=== PATIENT | female | born 1940 | race African-American/Black ===

== ENCOUNTER 2017-01-26 14:54 | Inpatient (IN) | payer OTHER ==
[~2017-01-26] VITALS: Ht 162.6 cm; Wt 99.7 kg
[2017-01-26 15:24] LABS: HEMATOCRIT 37.9 % (36.0-46.0); MCH 28.2 PG (29.0-34.0); MCHC 30.6 G/DL (30.0-36.0); MCV 92.2 FL (83-99); MEAN PLAT.VOLUME 9.8 uM^3 (9.5-12.4); PLATELET COUNT 287 K/uL (156-360); RBC DIS.WIDTH-CV 13.6 % (11.8-14.6); RBC DIS.WIDTH-SD 46.2 % (39-53); RED BLOOD COUNT 4.11 M/uL (3.80-5.20); WHITE BLOOD COUNT 7.3 K/uL (4.1-10.2)
[2017-01-26 15:34] LABS: CHLORIDE 107 mEq/L (99-109); POTASSIUM 3.8 mEq/L (3.7-5.4); SODIUM 141 mEq/L (136-147)
[2017-01-26 15:35] LABS: GLUCOSE 105 mg/dL (70-99)
[2017-01-26 15:39] LABS: ANION GAP 10 MEQ/L (2-14); GFR ESTIMATE (CALCULATED) > 59 mL/min/
[2017-01-26 15:40] LABS: UREA NITROGEN (BUN) 8 mg/dL (9-23)
[2017-01-26 16:13] LABS: TROP-I INTERPRETATION NEGATIVE; TROPONIN-I < 0.01 ng/mL (0.0-0.30)
[2017-01-26] MEDS ORDERED: BENAZEPRIL HCL40 MG PO (16:27)
[2017-01-26] MEDS ORDERED: AMLODIPINE BESYL5 MG PO (16:27)
[2017-01-26] MEDS ORDERED: SIMVASTATIN40 MG PO (16:27)
[2017-01-26] MEDS ORDERED: METFORMIN HCL500 M1 PO ×2 (16:27→16:28)
[2017-01-26] MEDS ORDERED: ATENOLOL25 MG PO (16:27)
[2017-01-26] MEDS ORDERED: SYNTHROID75 MCG PO (16:27)
[2017-01-26] MEDS ORDERED: LO-DOSE ASPIRIN81 M2 PO (16:28)
[2017-01-26 17:35] LABS: HDL CHOLESTEROL 56 MG/DL (Desirable>=50); LDL CHOLESTEROL 90 mg/dL (Desirable<100); NON-HDL CHOLESTEROL 109 mg/dL (Desirable<160); TOTAL CHOLESTEROL 165 mg/dL (Desirable<200); TRIGLYCERIDES 94 MG/DL (Normal: <150)
[2017-01-26 17:40] LABS: Estimated Average Glucose 134 mg/dL (70-123); HEMOGLOBIN A1c (GLYCOHEMOGLOB) 6.3 % HGB (Below 5.7)
[2017-01-26 20:24] VITALS: BP 169/82
[2017-01-27 01:11] VITALS: BP 138/69
[2017-01-27 04:21] VITALS: BP 166/72
[2017-01-27 08:11] VITALS: BP 158/88
[2017-01-27 11:36] VITALS: BP 146/78
[2017-01-27 12:14] LABS: POINT-OF-CARE METER ID UU14188625
[2017-01-27 20:00] VITALS: BP 178/87
[2017-01-27 21:00] VITALS: BP 170/82
[2017-01-27 21:14] LABS: POINT-OF-CARE METER ID UU14174225
[2017-01-28] VITALS: BP 193/75
[2017-01-28 04:00] VITALS: BP 170/80
[2017-01-28 08:03] VITALS: BP 152/67
[2017-01-28 08:40] LABS: POINT-OF-CARE METER ID UU14174225
[2017-01-28] MEDS ORDERED: ZESTRIL40 MG PO (16:18)
[2017-01-28] MEDS ORDERED: PRAVACHOL40 MG PO (16:20)
[2017-01-28] MEDS ORDERED: HEPARIN SO5000 UNIT3 SC (16:20)
== END 2017-01-28 13:32 | DRG 65 ==
LOC: EME 14:54 → EDOF 16:25 → 5SOUTH 16:25
PROVIDERS: Hospitalist; Internal Medicine
DX: I63.9 Cerebral infarction, unspecified (principal); G81.94 Hemiplegia, unspecified affecting left nondominant side; R29.810 Facial weakness; I10 Essential (primary) hypertension; E11.9 Type 2 diabetes mellitus without complications; E03.9 Hypothyroidism, unspecified; E78.5 Hyperlipidemia, unspecified; Z79.84 Long term (current) use of oral hypoglycemic drugs; Z79.82 Long term (current) use of aspirin
CPT/HCPCS: 70450; 70551; 71020; 80048; 80061; 82948; 83036; 84484; 85027; 92523 GN; 92610 GN; 93005; 93306; 93880; 97530 GP; 99281; 99285; J1644; J7030

== ENCOUNTER 2017-01-28 08:49 | Inpatient (IN) | payer OTHER ==
[~2017-01-28] VITALS: Ht 162.6 cm; Wt 82.3 kg
[~2017-01-28 08:49] MED LIST: AMLODIPINE BESYL5 MG PO; ATENOLOL25 MG PO; BENAZEPRIL HCL40 MG PO; LO-DOSE ASPIRIN81 M2 PO; METFORMIN HCL500 M1 PO; SIMVASTATIN40 MG PO; SYNTHROID75 MCG PO
[2017-01-28 13:56] VITALS: BP 170/87
[2017-01-28] MEDS ORDERED: ZESTRIL40 MG PO (16:18)
[2017-01-28] MEDS ORDERED: PRAVACHOL40 MG PO (16:20)
[2017-01-28] MEDS ORDERED: HEPARIN SO5000 UNIT3 SC (16:20)
[2017-01-28 17:03] LABS: POINT-OF-CARE METER ID UU14174215
[2017-01-28 20:43] VITALS: BP 120/66
[2017-01-28 21:31] LABS: POINT-OF-CARE METER ID UU13113720
[2017-01-28 23:31] VITALS: BP 161/72
[2017-01-29 05:17] LABS: HEMATOCRIT 34.4 % (36.0-46.0); MCH 28.3 PG (29.0-34.0); MCHC 30.8 G/DL (30.0-36.0); PLATELET COUNT 239 K/uL (156-360); RBC DIS.WIDTH-CV 13.7 % (11.8-14.6); RBC DIS.WIDTH-SD 46.3 % (39-53); RED BLOOD COUNT 3.74 M/uL (3.80-5.20); WHITE BLOOD COUNT 6.1 K/uL (4.1-10.2)
[2017-01-29 05:35] LABS: ALKALINE PHOSPHATASE 38 IU/L (3-129); ANION GAP 9 MEQ/L (2-14); CHLORIDE 105 MEQ/L (99-109); GFR ESTIMATE (CALCULATED) > 59 mL/min/; GLUCOSE 124 mg/dL (70-99); POTASSIUM 3.5 MEQ/L (3.7-5.4); SAMPLE HEMOLYSIS CHECK 0; SAMPLE ICTERIC CHECK 0; SAMPLE LIPEMIA CHECK 0; SODIUM 140 MEQ/L (136-147); TOTAL BILIRUBIN 0.5 MG/DL (0.0-1.0); UREA NITROGEN (BUN) 10 mg/dL (9-23)
[2017-01-29 05:37] VITALS: BP 143/70
[2017-01-29 06:59] LABS: POINT-OF-CARE METER ID UU14174215
[2017-01-29 11:24] LABS: POINT-OF-CARE METER ID UU14174215; POINT-OF-CARE USER ID ENVGAF
[2017-01-29 15:10] VITALS: BP 151/70
[2017-01-29 16:13] LABS: POINT-OF-CARE METER ID UU14174215
[2017-01-29 21:11] LABS: POINT-OF-CARE METER ID UU14174215
[2017-01-30 05:37] VITALS: BP 143/75
[2017-01-30 06:59] LABS: POINT-OF-CARE METER ID UU14174215; POINT-OF-CARE USER ID ENVGAF
[2017-01-30 11:25] LABS: POINT-OF-CARE METER ID UU14174215
[2017-01-30 15:09] VITALS: BP 138/68
[2017-01-30 16:19] LABS: POINT-OF-CARE METER ID UU14174215
[2017-01-30 21:11] LABS: POINT-OF-CARE METER ID UU14174215
[2017-01-31 05:08] LABS: CHLORIDE 108 mEq/L (99-109); POTASSIUM 3.5 mEq/L (3.7-5.4); SODIUM 140 mEq/L (136-147)
[2017-01-31 05:09] LABS: GLUCOSE 116 mg/dL (70-99)
[2017-01-31 05:11] LABS: ANION GAP 8 MEQ/L (2-14)
[2017-01-31 05:13] LABS: GFR ESTIMATE (CALCULATED) > 59 mL/min/
[2017-01-31 05:14] LABS: UREA NITROGEN (BUN) 12 mg/dL (9-23)
[2017-01-31 05:34] VITALS: BP 160/70
[2017-01-31 07:23] LABS: POINT-OF-CARE METER ID UU13113720; POINT-OF-CARE USER ID AHSSSJB31
[2017-01-31 11:39] LABS: POINT-OF-CARE METER ID UU13113720; POINT-OF-CARE USER ID AHSSSJB31
[2017-01-31 14:58] VITALS: BP 147/76
[2017-01-31 15:00] VITALS: BP 151/69
[2017-01-31 15:06] LABS: POINT-OF-CARE METER ID UU13113720
[2017-01-31 21:10] LABS: POINT-OF-CARE METER ID UU13113720
[2017-02-01 05:30] VITALS: BP 153/67
[2017-02-01 11:33] LABS: POINT-OF-CARE METER ID UU14174215
[2017-02-01 13:52] LABS: POINT-OF-CARE METER ID UU13113720
[2017-02-01 15:24] VITALS: BP 160/74
[2017-02-01 16:28] LABS: POINT-OF-CARE METER ID UU14174215
[2017-02-01 21:34] LABS: POINT-OF-CARE METER ID UU14174215
[2017-02-02 05:51] VITALS: BP 135/58
[2017-02-02 07:20] LABS: POINT-OF-CARE METER ID UU13113720
[2017-02-02 11:07] LABS: POINT-OF-CARE METER ID UU14174215
[2017-02-02 16:01] VITALS: BP 136/64
[2017-02-02 16:30] LABS: POINT-OF-CARE METER ID UU14174215
[2017-02-02 21:31] LABS: POINT-OF-CARE METER ID UU14174215
[2017-02-03 06:05] VITALS: BP 159/71
[2017-02-03 06:46] LABS: POINT-OF-CARE METER ID UU13113720
[2017-02-03 11:26] LABS: POINT-OF-CARE METER ID UU13113712
[2017-02-03 15:54] VITALS: BP 150/68
[2017-02-03 16:45] LABS: POINT-OF-CARE METER ID UU13113720
[2017-02-03 21:26] LABS: POINT-OF-CARE METER ID UU14174215
[2017-02-04 05:20] VITALS: BP 155/70
[2017-02-04 06:54] LABS: POINT-OF-CARE METER ID UU13113720; POINT-OF-CARE USER ID ENVGAF
[2017-02-04 11:51] LABS: POINT-OF-CARE METER ID UU14174215; POINT-OF-CARE USER ID ENVGAF
[2017-02-04 14:57] VITALS: BP 154/67
[2017-02-04 16:39] LABS: POINT-OF-CARE METER ID UU13113720
[2017-02-04 22:11] LABS: POINT-OF-CARE METER ID UU13113720
[2017-02-05 05:25] VITALS: BP 138/67
[2017-02-05 08:02] LABS: POINT-OF-CARE METER ID UU13113720
[2017-02-05 12:07] LABS: POINT-OF-CARE METER ID UU13113720; POINT-OF-CARE USER ID AHSSSJB31
[2017-02-05 16:03] VITALS: BP 162/68
[2017-02-05 16:46] LABS: POINT-OF-CARE METER ID UU13113720
[2017-02-05 21:35] LABS: POINT-OF-CARE METER ID UU14174215
[2017-02-06 06:41] VITALS: BP 161/69
[2017-02-06 08:06] LABS: POINT-OF-CARE METER ID UU14174215; POINT-OF-CARE USER ID AHSSSJB31
[2017-02-06 12:15] LABS: POINT-OF-CARE METER ID UU14174215; POINT-OF-CARE USER ID AHSSSJB31
[2017-02-06 15:41] VITALS: BP 154/68
[2017-02-06 16:33] LABS: POINT-OF-CARE METER ID UU13113720
[2017-02-06 21:35] LABS: POINT-OF-CARE METER ID UU14174215
[2017-02-07 05:11] VITALS: BP 148/67
[2017-02-07 08:22] LABS: POINT-OF-CARE METER ID UU14174215; POINT-OF-CARE USER ID AHSSSJB31
[2017-02-07 11:41] LABS: POINT-OF-CARE METER ID UU14174215; POINT-OF-CARE USER ID AHSSSJB31
[2017-02-07 15:45] VITALS: BP 165/74
[2017-02-07 16:48] LABS: POINT-OF-CARE METER ID UU14174215
[2017-02-07 21:23] LABS: POINT-OF-CARE METER ID UU14174215
[2017-02-08 05:17] VITALS: BP 158/74
[2017-02-08 06:50] LABS: POINT-OF-CARE METER ID UU14174215; POINT-OF-CARE USER ID ENVGAF
[2017-02-08 11:25] LABS: POINT-OF-CARE METER ID UU14174215; POINT-OF-CARE USER ID ENVGAF
[2017-02-08 14:48] VITALS: BP 150/63
[2017-02-08 16:27] LABS: POINT-OF-CARE METER ID UU14174215
[2017-02-08 21:28] LABS: POINT-OF-CARE METER ID UU14174215
[2017-02-09 05:16] VITALS: BP 166/71
[2017-02-09 06:58] LABS: POINT-OF-CARE METER ID UU14174215; POINT-OF-CARE USER ID ENVGAF
[2017-02-09 11:30] LABS: POINT-OF-CARE METER ID UU13113720
[2017-02-09 15:05] VITALS: BP 120/83
[2017-02-09 16:22] LABS: POINT-OF-CARE METER ID UU14174215
[2017-02-10 04:24] VITALS: BP 145/63
[2017-02-10 05:20] LABS: HEMATOCRIT 35.5 % (36.0-46.0); MCHC 31.5 G/DL (30.0-36.0); MEAN PLAT.VOLUME 11.4 uM^3 (9.5-12.4); PLATELET COUNT 218 K/uL (156-360); RBC DIS.WIDTH-CV 13.5 % (11.8-14.6); RBC DIS.WIDTH-SD 46.1 % (39-53); RED BLOOD COUNT 3.86 M/uL (3.80-5.20)
[2017-02-10 06:25] LABS: ALKALINE PHOSPHATASE 40 IU/L (3-129); ANION GAP 9 MEQ/L (2-14); CHLORIDE 104 MEQ/L (99-109); GFR ESTIMATE (CALCULATED) > 59 mL/min/; GLUCOSE 113 mg/dL (70-99); POTASSIUM 3.6 MEQ/L (3.7-5.4); SAMPLE HEMOLYSIS CHECK 0; SAMPLE ICTERIC CHECK 0; SAMPLE LIPEMIA CHECK 0; SODIUM 141 MEQ/L (136-147); TOTAL BILIRUBIN 0.4 MG/DL (0.0-1.0); UREA NITROGEN (BUN) 13 mg/dL (9-23)
[2017-02-10 07:00] LABS: POINT-OF-CARE METER ID UU13113720
[2017-02-10 11:35] LABS: POINT-OF-CARE METER ID UU13113720
[2017-02-10 15:42] VITALS: BP 143/66
[2017-02-10] MEDS ORDERED: SIMVASTATIN40 MG PO (18:35)
[2017-02-10] MEDS ORDERED: LO-DOSE ASPIRIN81 M2 PO (18:35)
[2017-02-10] MEDS ORDERED: SYNTHROID75 MCG PO (18:35)
[2017-02-10] MEDS ORDERED: BENAZEPRIL HCL40 MG PO (18:35)
[2017-02-10] MEDS ORDERED: METFORMIN HCL500 M1 PO ×2 (18:35)
[2017-02-10] MEDS ORDERED: AMLODIPINE BES2.5 MG PO (18:35)
[2017-02-10] MEDS ORDERED: AMLODIPINE BESYL5 MG PO (18:35)
[2017-02-10] MEDS ORDERED: ATENOLOL25 MG PO (18:35)
[2017-02-11 05:12] VITALS: BP 159/69
[2017-02-11 07:47] LABS: POINT-OF-CARE METER ID UU13113720; POINT-OF-CARE USER ID AHSSSJB31
[2017-02-11 11:50] LABS: POINT-OF-CARE METER ID UU13113720; POINT-OF-CARE USER ID AHSSSJB31
== END 2017-02-11 13:56 | DRG 57 ==
LOC: 3WEST 08:49
PROVIDERS: Physical Medicine & Rehabilitation Pain Medicine
PROC: F07M0ZZ Range of Motion and Joint Mobility Treatment of Musculoskeletal System - Whole Body (ICD-10-PCS; principal; 2017-01-28)
DX: I69.354 Hemiplegia and hemiparesis following cerebral infarction affecting left non-dominant side (principal); I69.322 Dysarthria following cerebral infarction; I10 Essential (primary) hypertension; E11.9 Type 2 diabetes mellitus without complications; E78.5 Hyperlipidemia, unspecified; E03.9 Hypothyroidism, unspecified; E87.6 Hypokalemia; D64.9 Anemia, unspecified; Z87.891 Personal history of nicotine dependence
CPT/HCPCS: 80048; 80053; 82948; 85027; 92507 GN; 92523 GN; 97110 GO; 97530 GP; J1650; J1815